=== PATIENT | male | born 1975 | race Caucasian/White ===

== ENCOUNTER 2023-08-02 19:23 | Emergency (ER) | payer SELFPAY ==
[2023-08-02 19:32] VITALS: BP 120/80; PULSE 102; RESP 17; TEMP 36.7; O2SAT 96; BMI 20.2
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
[2023-08-02 21:17] VITALS: BP 119/71; PULSE 71; RESP 16; TEMP 36.7; O2SAT 98
== END 2023-08-02 21:16 | disposition home or self-care (01) ==
PROVIDERS: Emergency Provider Emergency Medicine
DX: S52.124A Nondisplaced fracture of head of right radius, initial encounter for closed fracture (principal); V18.0XXA Pedal cycle driver injured in noncollision transport accident in nontraffic accident, initial encounter
CPT/HCPCS: 29105; 73080; 73090; 73110; 99284

== ENCOUNTER 2023-08-31 14:41 | Emergency (ER) | payer SELFPAY ==
[2023-08-31 14:43] VITALS: BP 136/79; PULSE 95; RESP 17; TEMP 36.8; O2SAT 98; BMI 20.2
[2023-08-31 15:00] VITALS: BP 136/92; PULSE 101; O2SAT 98
[2023-08-31 15:03] VITALS: BMI 20.2
--- NOTE | 2023-08-31 15:11 | CT_ITS ---
FINAL REPORT TECHNIQUE: Axial imaging of the chest was obtained without contrast. Reformatted images were also obtained and reviewed.This study was performed with techniques to keep radiation doses as low as reasonably achievable, (ALARA). Individualized dose reduction technique using automated exposure control or adjustment of mA and/or kV according to the patient's size were employed. CLINICAL HISTORY: concern for multi R posterolateral rib fxs FINDINGS: There is no axillary adenopathy. There is no hilar or mediastinal mass or adenopathy. Heart size is normal. There is no pericardial or pleural effusion. Limited images of the upper abdomen are unremarkable. No suspicious infiltrate or nodule is identified on lung window images. There are mildly displaced fractures of the right ninth, 10th and 11th ribs. A small amount of anterior subcutaneous emphysema is seen. There is no pneumothorax. IMPRESSION: Mildly displaced right ninth, 10th and 11th rib fractures without pneumothorax. Reviewed, Interpreted and Dictated by Anish Hodge MD Transcribed by Yuridia Villarreal Authenticated and [facility]
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
[2023-08-31 16:00] VITALS: BP 145/86; PULSE 85; O2SAT 100
[2023-08-31 16:41] VITALS: BP 142/88; PULSE 88; RESP 18; TEMP 36.8; O2SAT 100
== END 2023-08-31 16:44 | disposition home or self-care (01) ==
PROVIDERS: Emergency Provider Emergency Medicine
DX: S22.41XA Multiple fractures of ribs, right side, initial encounter for closed fracture (principal); S27.321A Contusion of lung, unilateral, initial encounter; F17.200 Nicotine dependence, unspecified, uncomplicated; W17.89XA Other fall from one level to another, initial encounter
CPT/HCPCS: 71250; 99284